=== PATIENT | female | born 1970 | race Two or more races ===

== ENCOUNTER → 2022-02-08 13:00 | Outpatient (BNVA) | payer OTHER, SELFPAY | PROVIDERS: Visit Provider Physician Assistant Surgical | DX: E66.01 Morbid (severe) obesity due to excess calories (principal); Z71.3 Dietary counseling and surveillance; Z68.42 Body mass index [BMI] 45.0-49.9, adult | CPT/HCPCS: 99202 ==

== ENCOUNTER 2022-02-12 09:05 | Outpatient (REF) | payer OTHER, SELFPAY ==
[2022-02-12 09:41] LABS: MANUAL DIFF FLAG NO
[2022-02-12 09:53] LABS: Basophils Percent Auto 0.3 % (0-2); Eosinophils Absolute Auto 0.4 X10*3/uL (0.0-0.4); Eosinophils Percent Auto 3.2 % (0-4); Hematocrit 37.2 % (37.0-47.0); Hemoglobin 11.6 g/dl (12.0-16.0); Imm Gran Abs Auto 0.09 X10*3/uL (0.00-0.03); Imm Gran Pct Auto 0.8 % (0.0-0.4); Lymphocytes Absolute Auto 2.6 X10*3/uL (1.2-4.9); Lymphocytes Percent Auto 22.6 % (20-40); Mean Corpuscular HGB Conc 31.2 g/dl (31.0-35.0); Mean Corpuscular Hemoglobin 23.9 pg (27.0-33.0); Mean Corpuscular Volume 76.7 fL (80.0-98.0); Monocytes Absolute Auto 0.6 X10*3/uL (0.1-1.2); Monocytes Percent Auto 4.8 % (2-11); Neutrophils Percent Auto 68.3 % (45-73); Platelet Count 385 X10*3/uL (160-400); Red Blood Count 4.85 X10*6/uL (4.20-5.50); Red Cell Distribution Width 15.7 % (11.0-16.0); White Blood Count 11.7 X10*3/uL (4.8-10.8)
[2022-02-12 10:05] LABS: Estimated Average Glucose 120 mg/dL; Hemoglobin A1c % 5.8 %
[2022-02-12 10:21] LABS: Alanine Aminotransferase 12 U/L (0-31); Alkaline Phosphatase 81 U/L (39-117); Anion Gap 11 (12-20); Aspartate Amino Transferase 10 U/L (5-31); Bilirubin Total 0.2 mg/dL (0.0-1.0); Blood Urea Nitrogen 14 mg/dL (9-16); Calcium 9.9 mg/dL (8.4-10.2); Carbon Dioxide 28 mmol/L (22-29); Chloride 106 mmol/L (96-108); Cholesterol 183 mg/dL; Estimated Glomerular Filt Rate > 60; Glucose Random 113 mg/dL (60-115); HDL Cholesterol 48 mg/dL; Iron 39 mcg/dL (30-160); LDL Cholesterol Calculated 123 mg/dl; Percent Iron Saturation 13 % (15-50); Potassium 4.3 mmol/L (3.3-5.1); Sodium 141 mmol/L (135-145); Total Iron Binding Capacity 304 mcg/dL (228-428); Total Protein 6.9 g/dL (6.5-8.0); Triglycerides 61 mg/dL; Unsaturated Iron Binding 265 ug/dL
[2022-02-12 10:54] LABS: Folate 13.5 ng/mL (> or = 4.0); Vitamin B12 452 pg/mL (200-900)
[2022-02-12 10:56] LABS: Ferritin 85 ng/mL (10-250); TSH reflex Free T4 1.18 uIU/mL (0.32-4.0); Vitamin D 25-OH Total 17.7 ng/mL (>30)
[2022-02-12 11:37] LABS: Insulin 20 uU/mL (2-29)
[2022-02-14 17:06] LABS: Calcium (PTHI) 10.3 mg/dL (8.6-10.4); PTHI 134 pg/mL (16-77)
[2022-02-15 02:02] LABS: Zinc 76 mcg/dL (60-130)
[2022-02-16 23:32] LABS: Vitamin A 38 mcg/dL (38-98)
[2022-02-23 06:17] LABS: Vitamin B1 12 nmol/L (8-30)
== END 2022-02-12 09:06 | disposition home or self-care (01) ==
LOC: HO.LAB 09:05
PROVIDERS: Visit Provider Physician Assistant Surgical
DX: E66.01 Morbid (severe) obesity due to excess calories (principal)
CPT/HCPCS: 36415; 80053; 80061; 82306; 82607; 82728; 82746; 83036; 83525; 83540; 83970; 84425; 84443; 84590; 84630; 85025; 86140

== ENCOUNTER → 2022-03-14 13:24 | Outpatient (BNVA) | payer OTHER, SELFPAY | PROVIDERS: Referring Provider Physician Assistant Surgical; Visit Provider Dietitian, Registered | DX: E66.01 Morbid (severe) obesity due to excess calories (principal) | CPT/HCPCS: 97802 ==

== ENCOUNTER 2022-03-15 10:41 | Outpatient (REF) | payer OTHER, SELFPAY ==
--- NOTE | ~2022-03-15 | XR_ITS ---
EXAMINATION: XR chest 2V CLINICAL INFORMATION: Reason for Exam E66.01 - Morbid (severe) obesity due to excess calories COMPARISON: None TECHNIQUE: 2 views of the chest FINDINGS: Clear lungs. No pneumothorax or pleural effusion. Normal cardiomediastinal silhouette. XR/XR chest 2V Impression: * Clear lungs.
--- NOTE | 2022-03-15 10:46 | ECG_ITS ---
Test Reason : MORBID OBESITY Blood Pressure : / mmHG Vent. Rate : 081 BPM Atrial Rate : 081 BPM P-R Int : 162 ms QRS Dur : 080 ms QT Int : 368 ms P-R-T Axes : 053 015 013 degrees QTc Int : 427 ms Normal sinus rhythm Normal ECG No previous ECGs available Referred By: Tejas Hudson Electronically Signed By:DK GRACIA
== END 2022-03-15 10:42 | disposition home or self-care (01) ==
LOC: HO.XRAY 10:41
PROVIDERS: Visit Provider Physician Assistant Surgical
DX: E66.01 Morbid (severe) obesity due to excess calories (principal)
CPT/HCPCS: 71046; 93005

== ENCOUNTER → 2022-04-01 13:47 | Outpatient (BNVA) | payer OTHER, SELFPAY | PROVIDERS: Visit Provider Physician Assistant Surgical | DX: E66.01 Morbid (severe) obesity due to excess calories (principal); Z68.42 Body mass index [BMI] 45.0-49.9, adult | CPT/HCPCS: 99212 ==

== ENCOUNTER 2022-04-04 08:14 | Outpatient (REF) | payer OTHER, SELFPAY ==
[2022-04-07 13:03] LABS: H Pylori Breath Test Negative (Negative)
== END 2022-04-04 08:15 | disposition home or self-care (01) ==
LOC: HO.XRAY 08:14
PROVIDERS: Visit Provider Physician Assistant Surgical
DX: E66.01 Morbid (severe) obesity due to excess calories (principal)
CPT/HCPCS: 36415; 83013; 99211

== ENCOUNTER → 2022-04-22 12:58 | Outpatient (BNVA) | payer OTHER, SELFPAY | PROVIDERS: Visit Provider Physician Assistant Surgical | DX: E66.01 Morbid (severe) obesity due to excess calories (principal); Z68.42 Body mass index [BMI] 45.0-49.9, adult | CPT/HCPCS: 99212 ==

== ENCOUNTER 2022-05-05 08:22 | Outpatient (REF) | payer OTHER, SELFPAY ==
--- NOTE | ~2022-05-05 | US_ITS ---
EXAMINATION: US COMPLETE ABDOMEN WITH LIVER ELASTOGRAPHY CLINICAL INFORMATION: Morbid to severe obesity due to excess calories. COMPARISON: None. TECHNIQUE: Real-time imaging of the abdominal viscera. Noninvasive ultrasound liver fibrosis assessment is performed using Paulina ElastPQ point quantification shear wave elastography (2D-SWE) with a C5-2 MHz transducer. Multiple elastography samples are obtained. FINDINGS: PANCREAS: Normal. The visualized pancreatic head and body are normal in appearance. The remainder of the pancreas is obscured from visualization by the overlying bowel gas. ABDOMINAL AORTA: The proximal and mid abdominal aorta is normal caliber. The distal abdominal aorta is obscured by overlying gas. INFERIOR VENA CAVA: Visualized portions are normal. LIVER: The liver demonstrates normal size, contour and increased echogenicity. No focal lesion or intrahepatic biliary duct dilatation. The right lobe measures 18.7 cm in length. The left lobe measures 13.7 cm in length. Portal flow is hepatopedal. Shear wave liver elastography median stiffness is 1.65 m/s (reference: normal median stiffness is 1.3 m/s or less). IQR/median stiffness to assess sampling precision is 0.05 (reference: good quality data set is IQR/median stiffness of 0.15 or less). GALLBLADDER: Normal. The gallbladder is physiologically distended without evidence of stones, sludge, polyps, wall thickening or pericholecystic fluid. COMMON BILE DUCT: Normal in caliber measuring 0.7 cm in diameter. RIGHT KIDNEY: Normal. No hydronephrosis. No renal calculi or focal parenchymal lesions. The kidney measures 13.9 cm in maximum dimension. LEFT KIDNEY: Normal. No hydronephrosis. No renal calculi or focal parenchymal lesions. The kidney measures 11.9 cm in maximum dimension. SPLEEN: Normal. The spleen measures 7.4 cm in maximum dimension. FREE FLUID: None. US/US abdomen comp w elastography IMPRESSION: 1. Hepatic steatosis without focal lesion. The rest of the abdominal ultrasound is unremarkable. 2. Liver elastography: Median liver stiffness 1.65 m/s. This corresponds to cACLD (ruled out). REFERENCE: Society of Radiologists in Ultrasound Liver Stiffness Thresholds (2019): LIVER STIFFNESS THRESHOLDS: *Liver Stiffness equal or less than 1.3 m/s: High probability of being normal. *Liver Stiffness less than 1.7 m/s: In the absence of other known clinical signs, rules out compensated advanced chronic liver disease. *Liver Stiffness 1.7-2.1 m/s: Suggestive of compensated advanced chronic liver disease but need further test for confirmation. *Liver Stiffness over 2.1 m/s: Rules in compensated advanced chronic liver disease. *Liver Stiffness over 2.4 m/s: Suggestive of clinically significant portal hypertension. QUALITY OF DATA SET: *IQR/Median value equal or less than 0.15 implies a quality data set *IQR/Median value over 0.15 implies a poor quality data set. SIGNIFICANT CHANGE FROM PRIOR EXAM: Significant change if liver stiffness measurement is 10% or greater from prior exam. OTHER CONSIDERATIONS: The stage of liver fibrosis may be overestimated in the setting of acute hepatitis, liver inflammation, elevated liver function tests, hepatic vascular congestion, obstructive cholestasis, non-fasting state, and infiltrative diseases such as amyloidosis and lymphoma. In some patients with NAFLD, the liver stiffness thresholds for compensated advanced chronic liver disease may be lower. In causes other than viral hepatitis and NAFLD, liver stiffness thresholds are not well established.
--- NOTE | ~2022-05-05 | FL_ITS ---
EXAMINATION: FLUOROSCOPY UPPER GI WITH AIR CLINICAL INFORMATION: Preop surgical weight loss COMPARISON: None. TECHNIQUE: An upper GI examination is performed under fluoroscopic observation with digital image acquisition. The patient drank effervescent granules, thick and thin barium consistencies without difficulty. FINDINGS: The esophagus is normal in motility and morphology. Normal caliber. No hiatal hernia. Mild spontaneous gastroesophageal reflux. The stomach demonstrates normal motility with normal rugal folds. The duodenal bulb and proximal duodenum demonstrate no evidence of ulcer, mass lesion, or displacement. FLUOROSCOPY TIME: 1 minute. 12 images. Fluoroscopy dose: 22.099 Gycm2 FL/FL upper GI w air IMPRESSION: Mild spontaneous gastroesophageal reflux. Otherwise normal UGI. Normal esophageal and gastric motility. No hiatal hernia.
== END 2022-05-05 08:23 | disposition home or self-care (01) ==
LOC: HO.US 08:22
PROVIDERS: Visit Provider Physician Assistant Surgical
DX: E66.01 Morbid (severe) obesity due to excess calories (principal)
CPT/HCPCS: 74246; 76705; 76981

== ENCOUNTER → 2022-05-11 13:45 | Outpatient (BNVA) | payer OTHER, SELFPAY | PROVIDERS: Visit Provider Physician Assistant Surgical | DX: E66.01 Morbid (severe) obesity due to excess calories (principal); Z68.42 Body mass index [BMI] 45.0-49.9, adult | CPT/HCPCS: 99212 ==

== ENCOUNTER → 2024-02-05 12:43 | Outpatient (BNVA) | payer OTHER, SELFPAY | PROVIDERS: Visit Provider Physician Assistant Surgical ==

== ENCOUNTER 2024-03-11 07:59 | Outpatient (AMB) | payer OTHER, SELFPAY ==
--- NOTE | 2024-03-11 10:27 | MHC.OFFVISWM ---
Intake Visit Reasons: TV Re-Est SWL BMI 41.9 *EGG BREAKER* Allergies ASPIRN Allergy (Severe, Uncoded 03/11/24 10:30) Anaphylaxis CT CONTRAST Allergy (Mild, Uncoded 03/11/24 10:30) UNKOWN Medication List - Last Reconciled 03/11/24 by Danny Benedict MD albuterol sulfate 90 mcg/actuation (ProAir HFA) 2 puffs inhalation Q4H PRN buspirone 5 mg PO BID cholecalciferol (vitamin D3) 125 mcg PO DAILY fluticasone propion-salmeterol 500-50 mcg/dose (Advair Diskus) 1 ea inhalation BID fluticasone propionate 50 mcg/actuation 1 spray intranasal BID gabapentin 600 mg PO TID lisinopril 10 mg PO DAILY loratadine 10 mg PO DAILY PRN metformin 500 mg PO BID montelukast 10 mg PO QPM omeprazole 20 mg PO DAILY sertraline 25 mg PO QAM tizanidine 8 mg PO Q8H PRN topiramate 0 mg PO HPI HPI TV Re-Est SWL BMI 41.9 *EGG BREAKER*: Details: Start time: 10.30am, End time: 11.15am ?I spent 40 minutes speaking with the patient on the phone plus an additional 5 minutes reviewing and updating records for a total of 45 minutes HPI Comments Details: Previous weight loss efforts: [facility] [place] ([place] 6lbs) Wakes up: 8am, Sleeps: 11pm Breakfast: 8.30am (eggs, sandwich) Lunch: 1pm (rice, beans and chicken Dinner: 7pm (same, or sandwich) Snacks: 10am (crackers), 5pm (corn flakes or crackers), 8pm (corn flakes) Exercise: Has a stationary bike (calorie tracker is not working) Fluids: Coffee with sugar x2-3 ,Tea: rarely, soda: less now, Juice: occasionally, ETOH: PFSH Medical History (Updated 03/11/24 @ 10:35 by Danny Benedict MD) GERD (gastroesophageal reflux disease) Migraines Anxiety Depression Hypertension Non-insulin dependent type 2 diabetes mellitus Surgical History Hx of colonoscopy Hx of bladder endoscopy Hx of tubal ligation Hx of oral surgery Hx of cholecystectomy Hx of emergency section Hx of appendectomy Family History Mother Stomach problems Father No problems noted. Daughter No problems noted. Social History Alcohol intake: never Patient Tobacco Use Status: Never used Tobacco Telehealth Telehealth Telehealth Platform: Telephone Location of provider rendering services: practice address Location of patient: address on file Patient Identification confirmed using: Name, : Yes Telehealth method: voice only Patient verbally consented to treatment: Yes Patient verbally consented to billing insurance company: Yes Patient informed of any privacy concerns related to visit: Yes Minutes spent on Phone/Video with Pt.: 45 Assessment & Plan Assessment & Plan (1) Morbid obesity: Code(s): E66.01 - Morbid (severe) obesity due to excess calories Category: Medical Plan: 1.? Plan for lap sleeve gastrectomy. If diaphragmatic or ventral hernias are present at time of surgery, these will be repaired laparoscopically as well. Risks and complications were discussed in detail including possible conversion to an open procedure, anastomotic leak, bleeding requiring transfusion, small bowel obstruction, , DVT and pulmonary embolism, cardiac, or pulmonary complications, as residential complications such as anastomotic ulcer, insufficient weight loss and vitamin deficiencies. I emphasized the importance of close follow-up, adherence to instructions and good communication. 2. Nutritional counseling. Start with 2 CELEBRATE REBUILD protein (buy at [facility]) shakes (TWO scoops EACH in 8oz low fat unsweetened almond milk each) at 9am-11am and 12pm-2pm, 1 protein bar (CELEBRATE protein bars, buy at [facility]) at 3pm-5pm, dinner at 6pm (10 forks of protein and 10 forks of salad/vegetables) AND one more protein bar after dinner at 8pm-10pm. So you do 2 protein shakes, 2 protein bars and one meal per day. Meal to include lean meat (beef, fish, pork, turkey, chicken), or telugu yogurt, or egg whites, or beans with a salad with olive oil and fruits (berries, pears, apples, kiwi). Avoid salt, breads, potatoes, rice, pasta, desserts. 3. Each shake would be drunk slowly, like coffee in a period of 2 hours. 4. Cut each bar in 4 pieces and eat each piece in 30min ?to make each bar last 2 hours. 5. I emphasized the importance of measuring accurately the food portion and measure it when serving the food in plate 6. The meal portions include 10 full-size forks of meat and 10 full-size forks of salad. You always eat the meat portion but you can replace up to 5 forks for salad/vegetables with rice, potatoes or pasta, or a fruit ?if you like. The less you do it the better weight loss will be. 7. One full-size fork is what it can be scooped on the fork without falling aside and not what can be bit with the fork. Use regular forks like those you find in a typical restaurant. 8.? Please send me weight measurements as soon as possible and then once a week. Always include your diet and exercise plan. 9. Start stationary bike at a resistance level of 4.0 and continue until 300 calories are burned. Goal is to burn 2000 calories per week on exercise 10. The best choice would be to purchase a stationary bike, elliptical or treadmill at home that can track calories. 11. Goal is to lose at least 1.5-2lbs per week 12. Goal to lose 10% of your weight before surgery, which is about 27lbs. Ultimate weight goal: 250lbs before surgery 13. Please follow the diet plan exactly without any change. If you don't like something about the plan or you feel hungry you need to communicate with me so I can help you revise the plan. You should not change the plan yourself. 14. To be scheduled for EGD due to history of GERD. The possibility of biopsies was discussed. Patient needs to avoid use of NSAIDs and aspirin for 1 week prior to EGD. Risks of perforation and bleeding was discussed with the patient. This will be an outpatient procedure with IV sedation. Orders: Orders Complete Blood Count Auto Diff Today E11.9 - Type 2 diabetes mellitus without complications, E66.01 - Morbid (severe) obesity due to excess calories, G47.33 - Obstructive sleep apnea (adult) (pediatric), I10 - Essential (primary) hypertension, J45.909 - Unspecified asthma, uncomplicated, K21.9 - Gastro-esophageal reflux disease without esophagitis, Z99.89 - Dependence on other enabling machines and devices IRON PROFILE Today E11.9 - Type 2 diabetes mellitus without complications, E66.01 - Morbid (severe) obesity due to excess calories, G47.33 - Obstructive sleep apnea (adult) (pediatric), I10 - Essential (primary) hypertension, J45.909 - Unspecified asthma, uncomplicated, K21.9 - Gastro-esophageal reflux disease without esophagitis, Z99.89 - Dependence on other enabling machines and devices Zinc Today E11.9 - Type 2 diabetes mellitus without complications, E66.01 - Morbid (severe) obesity due to excess calories, G47.33 - Obstructive sleep apnea (adult) (pediatric), I10 - Essential (primary) hypertension, J45.909 - Unspecified asthma, uncomplicated, K21.9 - Gastro-esophageal reflux disease without esophagitis, Z99.89 - Dependence on other enabling machines and devices US abdomen comp w elastography Today E11.9 - Type 2 diabetes mellitus without complications, E66.01 - Morbid (severe) obesity due to excess calories, G47.33 - Obstructive sleep apnea (adult) (pediatric), I10 - Essential (primary) hypertension, J45.909 - Unspecified asthma, uncomplicated, K21.9 - Gastro-esophageal reflux disease without esophagitis, Z99.89 - Dependence on other enabling machines and devices FL upper GI w air Today E11.9 - Type 2 diabetes mellitus without complications, E66.01 - Morbid (severe) obesity due to excess calories, G47.33 - Obstructive sleep apnea (adult) (pediatric), I10 - Essential (primary) hypertension, J45.909 - Unspecified asthma, uncomplicated, K21.9 - Gastro-esophageal reflux disease without esophagitis, Z99.89 - Dependence on other enabling machines and devices Insulin Today E11.9 - Type 2 diabetes mellitus without complications, E66.01 - Morbid (severe) obesity due to excess calories, G47.33 - Obstructive sleep apnea (adult) (pediatric), I10 - Essential (primary) hypertension, J45.909 - Unspecified asthma, uncomplicated, K21.9 - Gastro-esophageal reflux disease without esophagitis, Z99.89 - Dependence on other enabling machines and devices Hemoglobin A1c Today E11.9 - Type 2 diabetes mellitus without complications, E66.01 - Morbid (severe) obesity due to excess calories, G47.33 - Obstructive sleep apnea (adult) (pediatric), I10 - Essential (primary) hypertension, J45.909 - Unspecified asthma, uncomplicated, K21.9 - Gastro-esophageal reflux disease without esophagitis, Z99.89 - Dependence on other enabling machines and devices H Pylori Breath Test Today E11.9 - Type 2 diabetes mellitus without complications, E66.01 - Morbid (severe) obesity due to excess calories, G47.33 - Obstructive sleep apnea (adult) (pediatric), I10 - Essential (primary) hypertension, J45.909 - Unspecified asthma, uncomplicated, K21.9 - Gastro-esophageal reflux disease without esophagitis, Z99.89 - Dependence on other enabling machines and devices Lipid Panel Today E11.9 - Type 2 diabetes mellitus without complications, E66.01 - Morbid (severe) obesity due to excess calories, G47.33 - Obstructive sleep apnea (adult) (pediatric), I10 - Essential (primary) hypertension, J45.909 - Unspecified asthma, uncomplicated, K21.9 - Gastro-esophageal reflux disease without esophagitis, Z99.89 - Dependence on other enabling machines and devices Comprehensive Met. Panel Today E11.9 - Type 2 diabetes mellitus without complications, E66.01 - Morbid (severe) obesity due to excess calories, G47.33 - Obstructive sleep apnea (adult) (pediatric), I10 - Essential (primary) hypertension, J45.909 - Unspecified asthma, uncomplicated, K21.9 - Gastro-esophageal reflux disease without esophagitis, Z99.89 - Dependence on other enabling machines and devices Vitamin B12 and Folate Today E11.9 - Type 2 diabetes mellitus without complications, E66.01 - Morbid (severe) obesity due to excess calories, G47.33 - Obstructive sleep apnea (adult) (pediatric), I10 - Essential (primary) hypertension, J45.909 - Unspecified asthma, uncomplicated, K21.9 - Gastro-esophageal reflux disease without esophagitis, Z99.89 - Dependence on other enabling machines and devices C Reactive Protein Today E11.9 - Type 2 diabetes mellitus without complications, E66.01 - Morbid (severe) obesity due to excess calories, G47.33 - Obstructive sleep apnea (adult) (pediatric), I10 - Essential (primary) hypertension, J45.909 - Unspecified asthma, uncomplicated, K21.9 - Gastro-esophageal reflux disease without esophagitis, Z99.89 - Dependence on other enabling machines and devices Vitamin B1 Today E11.9 - Type 2 diabetes mellitus without complications, E66.01 - Morbid (severe) obesity due to excess calories, G47.33 - Obstructive sleep apnea (adult) (pediatric), I10 - Essential (primary) hypertension, J45.909 - Unspecified asthma, uncomplicated, K21.9 - Gastro-esophageal reflux disease without esophagitis, Z99.89 - Dependence on other enabling machines and devices Vitamin A Today E11.9 - Type 2 diabetes mellitus without complications, E66.01 - Morbid (severe) obesity due to excess calories, G47.33 - Obstructive sleep apnea (adult) (pediatric), I10 - Essential (primary) hypertension, J45.909 - Unspecified asthma, uncomplicated, K21.9 - Gastro-esophageal reflux disease without esophagitis, Z99.89 - Dependence on other enabling machines and devices TSH reflex Free T4 Today E11.9 - Type 2 diabetes mellitus without complications, E66.01 - Morbid (severe) obesity due to excess calories, G47.33 - Obstructive sleep apnea (adult) (pediatric), I10 - Essential (primary) hypertension, J45.909 - Unspecified asthma, uncomplicated, K21.9 - Gastro-esophageal reflux disease without esophagitis, Z99.89 - Dependence on other enabling machines and devices Ferritin Today E11.9 - Type 2 diabetes mellitus without complications, E66.01 - Morbid (severe) obesity due to excess calories, G47.33 - Obstructive sleep apnea (adult) (pediatric), I10 - Essential (primary) hypertension, J45.909 - Unspecified asthma, uncomplicated, K21.9 - Gastro-esophageal reflux disease without esophagitis, Z99.89 - Dependence on other enabling machines and devices Vitamin D 25-OH Total Today E11.9 - Type 2 diabetes mellitus without complications, E66.01 - Morbid (severe) obesity due to excess calories, G47.33 - Obstructive sleep apnea (adult) (pediatric), I10 - Essential (primary) hypertension, J45.909 - Unspecified asthma, uncomplicated, K21.9 - Gastro-esophageal reflux disease without esophagitis, Z99.89 - Dependence on other enabling machines and devices XR chest 2V Today E11.9 - Type 2 diabetes mellitus without complications, E66.01 - Morbid (severe) obesity due to excess calories, G47.33 - Obstructive sleep apnea (adult) (pediatric), I10 - Essential (primary) hypertension, J45.909 - Unspecified asthma, uncomplicated, K21.9 - Gastro-esophageal reflux disease without esophagitis, Z99.89 - Dependence on other enabling machines and devices ECG 12 lead EKG Today E11.9 - Type 2 diabetes mellitus without complications, E66.01 - Morbid (severe) obesity due to excess calories, G47.33 - Obstructive sleep apnea (adult) (pediatric), I10 - Essential (primary) hypertension, J45.909 - Unspecified asthma, uncomplicated, K21.9 - Gastro-esophageal reflux disease without esophagitis, Z99.89 - Dependence on other enabling machines and devices Referrals Behavioral Health Referral E11.9 - Type 2 diabetes mellitus without complications, E66.01 - Morbid (severe) obesity due to excess calories, G47.33 - Obstructive sleep apnea (adult) (pediatric), I10 - Essential (primary) hypertension, J45.909 - Unspecified asthma, uncomplicated, K21.9 - Gastro-esophageal reflux disease without esophagitis, Z99.89 - Dependence on other enabling machines and devices Nutrition/Dietitian Referral E11.9 - Type 2 diabetes mellitus without complications, E66.01 - Morbid (severe) obesity due to excess calories, G47.33 - Obstructive sleep apnea (adult) (pediatric), I10 - Essential (primary) hypertension, J45.909 - Unspecified asthma, uncomplicated, K21.9 - Gastro-esophageal reflux disease without esophagitis, Z99.89 - Dependence on other enabling machines and devices
== END 2024-03-11 11:17 | disposition home or self-care (01) ==
LOC: HO.HBS 07:59
PROVIDERS: Visit Provider Surgery
DX: E66.01 Morbid (severe) obesity due to excess calories (principal)
CPT/HCPCS: 99204

== ENCOUNTER → 2024-03-11 07:59 | Outpatient (BNVA) | payer OTHER, SELFPAY | PROVIDERS: Visit Provider Surgery ==

== ENCOUNTER 2024-03-12 08:40 | Outpatient (REF) | payer OTHER, SELFPAY ==
--- NOTE | ~2024-03-12 | XR_ITS ---
EXAMINATION: XR CHEST CLINICAL INFORMATION: Morbid severe obesity due to excess calories COMPARISON: 03/15/2022 TECHNIQUE: 2 views of the chest were obtained. FINDINGS: Lung volumes are low. There is no gross pneumothorax. Surgical clip at the thoracic inlet. Dextroscoliosis of the thoracic spine with multilevel degenerative changes. Cardiac silhouette upper limits of normal in size. No pleural effusion. No focal consolidation. Surgical clips in the upper abdomen. XR/XR chest 2V IMPRESSION: No evidence of pneumonia. Electronically signed by: Sandra Diggs MD 03/27/2024 11:16 AM EDT
--- NOTE | 2024-03-12 08:54 | ECG_ITS ---
Test Reason : MORBID OBESITY Blood Pressure : / mmHG Vent. Rate : 075 BPM Atrial Rate : 075 BPM P-R Int : 164 ms QRS Dur : 092 ms QT Int : 392 ms P-R-T Axes : 055 019 019 degrees QTc Int : 437 ms Normal sinus rhythm Normal ECG When compared with ECG of 15-MAR-2022 10:43, No significant change was found Referred By: Danny Benedict Electronically Signed By:DK GRACIA
[2024-03-12 09:06] LABS: MANUAL DIFF FLAG NO
[2024-03-12 09:27] LABS: Basophils Absolute Auto 0.1 X10*3/uL (0.0-0.2); Basophils Percent Auto 0.5 % (0-2); Eosinophils Absolute Auto 0.3 X10*3/uL (0.0-0.4); Eosinophils Percent Auto 2.5 % (0-4); Hematocrit 40.7 % (37.0-47.0); Hemoglobin 12.3 g/dl (12.0-16.0); Imm Gran Abs Auto 0.06 X10*3/uL (0.00-0.03); Imm Gran Pct Auto 0.5 % (0.0-0.4); Lymphocytes Absolute Auto 2.6 X10*3/uL (1.2-4.9); Mean Corpuscular HGB Conc 30.2 g/dl (31.0-35.0); Mean Corpuscular Hemoglobin 23.6 pg (27.0-33.0); Mean Corpuscular Volume 78.1 fL (80.0-98.0); Monocytes Absolute Auto 0.5 X10*3/uL (0.1-1.2); Monocytes Percent Auto 4.4 % (2-11); Neutrophils Absolute Auto 8.2 x10*3/uL (2.0-8.3); Neutrophils Percent Auto 70.1 % (45-73); Platelet Count 373 X10*3/uL (160-400); Red Blood Count 5.21 X10*6/uL (4.20-5.50); Red Cell Distribution Width 15.7 % (11.0-16.0); White Blood Count 11.6 X10*3/uL (4.8-10.8)
[2024-03-12 09:43] LABS: Estimated Average Glucose 123 mg/dL; Hemoglobin A1c % 5.9 % (<6.0)
[2024-03-12 10:35] LABS: Alanine Aminotransferase 14 U/L (0-31); Albumin Level 4.1 g/dL (3.5-5.0); Alkaline Phosphatase 68 U/L (39-117); Anion Gap 14 (12-20); Aspartate Amino Transferase 11 U/L (5-31); Bilirubin Total 0.3 mg/dL (0.0-1.0); Blood Urea Nitrogen 15 mg/dL (9-16); C Reactive Protein 2.28 mg/dL (< or = 0.50); Calcium 9.9 mg/dL (8.4-10.2); Carbon Dioxide 26 mmol/L (22-29); Chloride 106 mmol/L (96-108); Cholesterol 170 mg/dL (<200); Estimated Glomerular Filt Rate > 60; Glucose Random 120 mg/dL (60-115); HDL Cholesterol 43 mg/dL (>40); Iron 47 mcg/dL (30-160); LDL Cholesterol Calculated 111 mg/dL (<100); Percent Iron Saturation 19 % (15-50); Potassium 4.6 mmol/L (3.3-5.1); Sodium 141 mmol/L (135-145); Total Iron Binding Capacity 253 mcg/dL (228-428); Total Protein 7.6 g/dL (6.5-8.0); Triglycerides 84 mg/dL (<150); Unsaturated Iron Binding 206 ug/dL
[2024-03-12 10:44] LABS: Ferritin 115 ng/mL (10-250); Insulin 13 uU/mL (2-29); TSH reflex Free T4 1.08 uIU/mL (0.32-4.0); Vitamin D 25-OH Total 33.9 ng/mL (>30)
[2024-03-12 11:01] LABS: Folate 13.3 ng/mL (> or = 4.0); Vitamin B12 501 pg/mL (200-900)
[2024-03-15 00:19] LABS: Vitamin A 43 mcg/dL (38-98)
[2024-03-15 02:49] LABS: Zinc 75 mcg/dL (60-130)
[2024-03-16 12:09] LABS: Vitamin B1 11 nmol/L (8-30)
== END 2024-03-12 08:41 | disposition home or self-care (01) ==
LOC: HO.XRAY 08:40
PROVIDERS: Visit Provider Surgery
DX: E66.01 Morbid (severe) obesity due to excess calories (principal); J45.909 Unspecified asthma, uncomplicated; G47.33 Obstructive sleep apnea (adult) (pediatric); Z99.89 Dependence on other enabling machines and devices; E11.9 Type 2 diabetes mellitus without complications; I10 Essential (primary) hypertension; K21.9 Gastro-esophageal reflux disease without esophagitis
CPT/HCPCS: 36415; 71046; 80053; 80061; 82306; 82607; 82728; 82746; 83036; 83525; 83540; 84425; 84443; 84590; 84630; 85025; 86140; 93005

== ENCOUNTER 2024-03-18 09:21 | Outpatient (REF) | payer OTHER, SELFPAY ==
--- NOTE | ~2024-03-18 | US_ITS ---
EXAMINATION: US COMPLETE ABDOMEN WITH LIVER ELASTOGRAPHY CLINICAL INFORMATION: Morbid obesity. COMPARISON: Ultrasound abdomen with Elastoplasty 05/05/2022. TECHNIQUE: Real-time imaging of the abdominal viscera. Noninvasive ultrasound liver fibrosis assessment is performed using Paulina ElastPQ point quantification shear wave elastography (pSWE) with a C5-2 MHz transducer. Multiple elastography samples are obtained. FINDINGS: PANCREAS: The visualized pancreatic head and body are normal in appearance. The remainder of the pancreas is obscured from visualization by the overlying bowel gas. ABDOMINAL AORTA: The proximal, middle, and distal aortic segments are normal in caliber. INFERIOR VENA CAVA: Visualized portions are normal. LIVER: Liver is enlarged with increased echogenicity consistent with hepatic steatosis.. No focal lesion or intrahepatic biliary duct dilatation. The right lobe measures 18.0 cm in length. The left lobe measures 12.3 cm in length. Portal flow is towards the liver (hepatopetal). Shear wave liver elastography median stiffness is 1.51 m/s (reference: normal median stiffness is 1.3 m/s or less). IQR/median stiffness to assess sampling precision is 0.14 (reference: good quality data set is IQR/median stiffness of 0.15 or less). GALLBLADDER: Normal. The gallbladder is physiologically distended without evidence of stones, sludge, polyps, wall thickening or pericholecystic fluid. COMMON BILE DUCT: Normal in caliber measuring 0.7 cm in diameter. RIGHT KIDNEY: Normal. No hydronephrosis. No renal calculi or focal parenchymal lesions. A column of Trell is present. The kidney measures 13.9 cm in maximum dimension. LEFT KIDNEY: Normal. No hydronephrosis. No renal calculi or focal parenchymal lesions. The kidney measures 13.2 cm in maximum dimension. SPLEEN: Normal. The spleen measures 7.7 cm in maximum dimension. FREE FLUID: None. US/US abdomen comp w elastography IMPRESSION: 1. Enlarged fatty liver. 2. Liver elastography: In the absence of other known clinical signs, measurements rule out compensated advanced chronic liver disease. If there are known clinical signs, further testing may be needed for confirmation. REFERENCE: Society of Radiologists in Ultrasound Liver Stiffness Thresholds (2020): LIVER STIFFNESS THRESHOLDS: *Liver Stiffness equal or less than 1.3 m/s: High probability of being normal. *Liver Stiffness less than 1.7 m/s: In the absence of other known clinical signs, rules out compensated advanced chronic liver disease. *Liver Stiffness 1.7-2.1 m/s: Suggestive of compensated advanced chronic liver disease but need further test for confirmation. *Liver Stiffness over 2.1 m/s: Rules in compensated advanced chronic liver disease. *Liver Stiffness over 2.4 m/s: Suggestive of clinically significant portal hypertension. QUALITY OF DATA SET: *IQR/Median value equal or less than 0.15 implies a quality data set. *IQR/Median value over 0.15 implies a poor quality data set. SIGNIFICANT CHANGE FROM PRIOR EXAM: Significant change if liver stiffness measurement is 10% or greater from prior exam. OTHER CONSIDERATIONS: The stage of liver fibrosis may be overestimated in the setting of acute hepatitis, liver inflammation, elevated liver function tests, hepatic vascular congestion, obstructive cholestasis, non-fasting state, and infiltrative diseases such as amyloidosis and lymphoma. In some patients with NAFLD, the liver stiffness thresholds for compensated advanced chronic liver disease may be lower. In causes other than viral hepatitis and NAFLD, liver stiffness thresholds are not well established. Electronically signed by: Vitaly Méndez MD 03/20/2024 05:04 PM EDT
== END 2024-03-18 09:22 | disposition home or self-care (01) ==
LOC: HO.US 09:21
PROVIDERS: Visit Provider Surgery
DX: E66.01 Morbid (severe) obesity due to excess calories (principal); J45.909 Unspecified asthma, uncomplicated; G47.33 Obstructive sleep apnea (adult) (pediatric); Z99.89 Dependence on other enabling machines and devices; E11.9 Type 2 diabetes mellitus without complications; I10 Essential (primary) hypertension; K21.9 Gastro-esophageal reflux disease without esophagitis
CPT/HCPCS: 76700; 76981

== ENCOUNTER → 2024-03-19 10:22 | Outpatient (AMB) | payer OTHER, SELFPAY ==
--- NOTE | 2024-03-19 10:19 | A.OFFWM_ITS ---
Intake Intake Visit Reasons: TV BH Intake Allergies ASPIRN Allergy (Severe, Uncoded 03/11/24 10:30) Anaphylaxis CT CONTRAST Allergy (Mild, Uncoded 03/11/24 10:30) UNKOWN [facility] Medical History (Updated 03/11/24 @ 10:35 by Danny Benedict MD) GERD (gastroesophageal reflux disease) Migraines Anxiety Depression Hypertension Non-insulin dependent type 2 diabetes mellitus Surgical History Hx of colonoscopy Hx of bladder endoscopy Hx of tubal ligation Hx of oral surgery Hx of cholecystectomy Hx of emergency section Hx of appendectomy Family History Mother Stomach problems Father No problems noted. Daughter No problems noted. Social History Alcohol intake: never Patient Tobacco Use Status: Never used Tobacco Behavioral Health Assessment Weight Management Therapy Therapy Notes Details PT is a years old F/M, who presents for a visit to complete BH assessment as part of surgical weight loss program. PT i reestablishing care as she was at this program in 2021. PT reports she is looking for help with learning better eating habits and start living a healthy life. Bariatric surgery has been advised to her due to her BMI and multiple health issues. Presenting Concerns Referral Source P-Provider. PT had initial visit with Dr. Dorsey on 03/11/24 PT was in this program on 01/2022. Reason for referral Completion of behavioral health assessment as part of process for weight-loss surgery. Precipitating Event Obesity and medical issues. Living Situation Current Living Situation Rent At risk of losing current housing? No Satisfied with current living situation? Yes Comments PT lives alone. Food/Weight/Diet Expectations of change Initial Goal to lose 10% of your weight before surgery, which is about 27lbs. Ultimate weight goal: 250lbs before surgery. Patient wants to be healthier, and she understand that by losing weight her health will be better. She also wants to feel better with herself with her body. PT as not started meal plan yet. Current meal plan: 2 shakes, 2 bars and 1 meal. Exercise plan: She has a bike and has been advised to use it daily and burn 300 calories. She hasn't started. History/Relationship with food PT reports she tends to swallow food instead of properly chewing foods. She eat fast a mostly carbs. Meals are -style a with multiple carbs in one meal. And she gets very hungry at night often binging and snaking on sweets, cereal with milk or crackers. She doesn't have a meal schedule, and mostly her meals will depend on her mood or how she feels physically. Example of meals before starting the program: Breakfast: @8 or 9am. frozen waffles with coffee (cream and sugar), toast with peanut butter and jelly, crackers with eggs, deli sandwich. Lunch: Skip. Will mostly eat soda crackers with coffee. If cooking dinner early then she will eat at 2pm her meal of the day. Dinner: @4pm. style cooked meals (rice, beans, pork). If hungry at 7pm, will have either a second portion from meal she cooked or will prepare a sandwich or cereal with milk. Frozen pizza. Snacks: multiple at days. Doritos, lollipops, soda. Drinks/Liquids: coffee multiple cups at day, soda, crystal light, 2-3 bootless of water at day, sparkling water with flavor. History/Relationship with weight PT reports she has always been overweight. In the last 10 years, the patient's Lowest weight was around 220Lbs and highest 280Lbs. History/Relationship with dieting [facility] in 2021. She has done some diets and OTC pills. She usually starts every effort very motivated but she doesn't like to do things alone, and then feels unmotivated and gets back into old habits which leads to gain the weight she loss. Assessment & Plan Assessment & Plan (1) Anxiety: Code(s): F41.9 - Anxiety disorder, unspecified Plan PT not cleared today. She will be returning to continue assessment. On the other hand, the client needs support with habit building, mindset and alleged emotional eating. PT was provided with strategies to be consistent with her meal plan and ways to start exercise plan while does something she likes (watch a movie, listen to music) Next laurel: 04/03/2024 at 10am. Telehealth Telehealth Telehealth Platform: Thing[employer] Location of provider rendering services: other Location of patient: address on file Patient Identification confirmed using: Name, : Yes Telehealth method: video Patient verbally consented to treatment: Yes Patient verbally consented to billing insurance company: Yes Patient informed of any privacy concerns related to visit: No Minutes spent on Phone/Video with Pt.: 60 Coding Level of Care Code New Pt Tele Psy Diag Eval (41790) Patient Type New Diagnoses Anxiety F41.9 Time Spent (min) 60 Comment Start time: 10:00 - End time: 11:00
== END ==
PROVIDERS: Visit Provider Counselor Mental Health
DX: F41.9 Anxiety disorder, unspecified (principal)
CPT/HCPCS: 90791

== ENCOUNTER → 2024-03-19 10:22 | Outpatient (BNVA) | payer OTHER, SELFPAY | PROVIDERS: Visit Provider Counselor Mental Health ==

== ENCOUNTER → 2024-04-03 10:12 | Outpatient (BNVA) | payer OTHER, SELFPAY | PROVIDERS: Visit Provider Counselor Mental Health ==

== ENCOUNTER → 2024-04-03 10:12 | Outpatient (AMB) | payer OTHER, SELFPAY ==
--- NOTE | 2024-04-03 10:05 | A.OFFWM_ITS ---
Intake Intake Visit Reasons: VIDEO Intake Part 2 Allergies ASPIRN Allergy (Severe, Uncoded 03/11/24 10:30) Anaphylaxis CT CONTRAST Allergy (Mild, Uncoded 03/11/24 10:30) UNKOWN [facility] Medical History (Updated 03/11/24 @ 10:35 by Danny Benedict MD) GERD (gastroesophageal reflux disease) Migraines Anxiety Depression Hypertension Non-insulin dependent type 2 diabetes mellitus Surgical History Hx of colonoscopy Hx of bladder endoscopy Hx of tubal ligation Hx of oral surgery Hx of cholecystectomy Hx of emergency section Hx of appendectomy Family History Mother Stomach problems Father No problems noted. Daughter No problems noted. Social History Alcohol intake: never Patient Tobacco Use Status: Never used Tobacco Behavioral Health Assessment Weight Management Therapy Therapy Notes Details PT is a years old F/M, who presents for a second visit to continue BH assessment as part of surgical weight loss program. PT i reestablishing care as she was at this program in 2021. PT reports she is looking for help with learning better eating habits and start living a healthy life. Bariatric surgery has been advised to her due to her BMI and multiple health issues. Today we continue her assessment however, counseling was provided for symptom management and to provide client with techniques for motivation and healthier self-care practices. PT reports ongoing struggles being consistent with program requirements around meal/exercise, and we identified this is due to her mental health, she agreed about need for support with habit building and mindset. PT is attending counseling but not feeling current treatment is helping her resolving core components of depression and with no major behavioral changes on her part. PT also did not completed BH questionnaires at intake to re-start WMP program, so we will have to complete these at next visit. PT was very open, active and engaged. She disclosed personal information that helped and guided interventions used today. PT also responded well to modalities used by provider. At this time patient is not cleared, she will need support pre and post surgery. Presenting Concerns Referral Source [facility]-Provider. PT had initial visit with Dr. Dorsey on 03/11/24 PT was in this program on 01/2022. Reason for referral Completion of behavioral health assessment as part of process for weight-loss surgery. Precipitating Event Obesity and medical issues. Living Situation Current Living Situation Rent At risk of losing current housing? No Satisfied with current living situation? Yes Comments PT lives alone. Food/Weight/Diet Expectations of change Initial Goal to lose 10% of your weight before surgery, which is about 27lbs. Ultimate weight goal: 250lbs before surgery. Patient wants to be healthier, and she understand that by losing weight her health will be better. She also wants to feel better with herself with her body. PT as not started meal plan yet. Current meal plan: 2 shakes, 2 bars and 1 meal. Exercise plan: She has a bike and has been advised to use it daily and burn 300 calories. She hasn't started. History/Relationship with food PT reports she tends to swallow food instead of properly chewing foods. She eat fast a mostly carbs. Meals are -style a with multiple carbs in one meal. And she gets very hungry at night often binging and snaking on sweets, cereal with milk or crackers. She doesn't have a meal schedule, and mostly her meals will depend on her mood or how she feels physically. Example of meals before starting the program: Breakfast: @8 or 9am. frozen waffles with coffee (cream and sugar), toast with peanut butter and jelly, crackers with eggs, deli sandwich. Lunch: Skip. Will mostly eat soda crackers with coffee. If cooking dinner early then she will eat at 2pm her meal of the day. Dinner: @4pm. style cooked meals (rice, beans, pork). If hungry at 7pm, will have either a second portion from meal she cooked or will prepare a sandwich or cereal with milk. Frozen pizza. Snacks: multiple at days. Doritos, lollipops, soda. Drinks/Liquids: coffee multiple cups at day, soda, crystal light, 2-3 bootless of water at day, sparkling water with flavor. History/Relationship with weight PT reports she has always been overweight. In the last 10 years, the patient's Lowest weight was around 220Lbs and highest 280Lbs. History/Relationship with dieting [facility] in 2021. She has done some diets and OTC pills. She usually starts every effort very motivated but she doesn't like to do things alone, and then feels unmotivated and gets back into old habits which leads to gain the weight she loss. Social History Family history and relationship PT is several years ago. She dates someone 4 years ago who lives in [place]. She has 1 adult daughter and 3 grandkids (they are 15, 13 and 3). She has 2 siblings, mother alive, dad is . PT states she is close with her mother and daughter, and but good relationships with her family in general. Parental/Familial kitchen bath designer obligations Helps taking care of grandchildren. Developmental history and status She had a speech delay in childhood. 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 Currently WNL. Social support Brother, daughter, mother. Community support None. Baptism/Spirituality [employer]. Goes to catholic couple times at year. Cultural/Ethnic information Born and raised in [place]. [place] moved to the [place] 1999. Arabic speaker. Legal Involvement and History Current or historical involvement with the legal system? None reported Education0 Highest grade completed GED. Preferred learning style Learn by doing and Visual Currently enrolled in educational program? No Interested in further educational program? No Employment Employment Status Never Worked (Tried early in life but had issues due to anxiety being abound people and other physical limitations. ) and Unemployed Wants help to find employment? No Meaningful activities Family activities, care of grandkids, watch Tv. Financial Situation Describe current financial situation Often struggles with finance and Financial struggles are a major source of stress Financial assistance? Food [place], SSI and Disability Service Service? No Mental Health and Addiction Treatment Current/Past substance abuse? No Comments Alcohol: rarely, couple times at year 1 beer. Cigarettes/Tobacco: None. Was a smoker years ago. Cannabis/Edibles: None. Current/Past addictive behavior concerns? No Psychiatric history PT currently sees a therapist (Dilcia James) on a bi-weekly basis via telehealth and has a prescriber with whom she meets every 2-3 months. PT states she suffers from depression and anxiety but she's not aware of formal diagnosis. She has a history of self-harming (cutting her arms) when upset and dealing with intense anger. She has been stable in regards cutting couple years ago, and has been replacing this need by getting tattoos as when she goes trough pain she was able to regulate her emotions. States she has never been in crisis and/or hospitalized for mental health. Denies any SI/SA and other-harm. Symptom presentation: -When she's depressed she cries and isol ates, she feels she losses the meaning of her life. - She has high stress due to finances bu t at the same time she struggles with buying in excess. - Reports issues with body image and Medical and Physical Health Summary Additional Medical History not covered in history None Sexual History concerns None Physical exam in the last year? Yes Pain Screening Current pain? Yes Pain in the last few months? Yes Medications Is the patient compliant with medications? Yes Does the patient have Aragon Guardian in place? Not applicable Does the patient use complimentary health approaches? No Assessment & Plan Assessment & Plan (1) Anxiety: Code(s): F41.9 - Anxiety disorder, unspecified (2) Depression: Code(s): F32.A - Depression, unspecified Plan PT not cleared, she will need to provide a letter from provider to support clearance. Phq-9 and BEs will be administered at next visit. Next laurel: 04/24/24 at 12:45pm, via Telehealth Telehealth Telehealth Telehealth Platform: [employer] Location of provider rendering services: other Location of patient: address on file Patient Identification confirmed using: Name, : Yes Telehealth method: video Patient verbally consented to treatment: Yes Patient verbally consented to billing insurance company: Yes Patient informed of any privacy concerns related to visit: No Minutes spent on Phone/Video with Pt.: 60 Coding Level of Care Code Established Pt Tele Psytx >53 mins (35390) Patient Type Established Diagnoses Anxiety F41.9 Depression F32.A Time Spent (min) 60 Comment Start time: 10:05am - End time: 11:05am
== END ==
LOC: HO.HBST 10:12
PROVIDERS: Visit Provider Counselor Mental Health
DX: F41.9 Anxiety disorder, unspecified (principal); F32.A Depression, unspecified
CPT/HCPCS: 90837

== ENCOUNTER → 2024-04-24 12:53 | Outpatient (BNVA) | payer OTHER, SELFPAY | PROVIDERS: Visit Provider Counselor Mental Health ==

== ENCOUNTER → 2024-04-24 12:53 | Outpatient (AMB) | payer OTHER, SELFPAY ==
--- NOTE | 2024-04-24 12:45 | A.OFFWM_ITS ---
Intake Intake Visit Reasons: VIDEO F/U Allergies ASPIRN Allergy (Severe, Uncoded 03/11/24 10:30) Anaphylaxis CT CONTRAST Allergy (Mild, Uncoded 03/11/24 10:30) UNKOWN [facility] Medical History (Updated 04/24/24 @ 14:11 by Padma Tucker [facility]) GERD (gastroesophageal reflux disease) Migraines Anxiety Depression Hypertension Non-insulin dependent type 2 diabetes mellitus Surgical History Hx of colonoscopy Hx of bladder endoscopy Hx of tubal ligation Hx of oral surgery Hx of cholecystectomy Hx of emergency section Hx of appendectomy Family History Mother Stomach problems Father No problems noted. Daughter No problems noted. Social History Alcohol intake: never Patient Tobacco Use Status: Never used Tobacco Behavioral Health Assessment Weight Management Therapy Therapy Notes Details PT presents for a follow up visit via Telehealth. This is her 3rd visit with the objective of completing assessment for bariatric surgery. This a patient with a history of depression and anxiety, she reported her therapist provided her diagnosis last week and she is diagnosed with depression and PTSD. PT has regular visits with her therapist on a bi-weekly basis and prescriber every 2-3 months. The patient reports she feels depressed most of the days and has struggled with emotional and disordered eating for several years leaving to weight gain. She started the SWL program on 03/2024 and was provided with guidelines to follow a meal plan, however the patient reports major struggles in terms of her motivation and committing to this leading to her not following meal plan as indicated. PT reports she has no control over her eating behaviors whic leas to drink the shakes and eat the bar too fast, she is also still engaging in bin- eating at night and feels hungry all the time. On the other hand, the patient reported todayt she has been decreasing portions for her meals of the day and has been increasing the vegetables intakes. She continues not exercising. PT is aware she has a hard time making the necessary behavioral changes to comply with program expectations, partly influenced by high levels of stress and old habits, she has agreed to continue meeting with this provider to start working in behavioral modification. PT is also aware she is not ready for a surgery at this time and she was informed she has not been cleared yet from BH standpoint, but agreed to recommendations and we are planning to meet every 2-3 weeks with the goal of pursue weight-loss surgery when behaviorally and emotionally ready. Presenting Concerns Referral Source WMP-Provider. PT had initial visit with Dr. Dorsey on 03/11/24 PT was in this program on 01/2022. Reason for referral Completion of behavioral health assessment as part of process for weight-loss surgery. Precipitating Event Obesity and medical issues. Living Situation Current Living Situation Rent At risk of losing current housing? No Satisfied with current living situation? Yes Comments PT lives alone. Food/Weight/Diet Expectations of change Initial Goal to lose 10% of your weight before surgery, which is about 27lbs. Ultimate weight goal: 250lbs before surgery. Patient wants to be healthier, and she understand that by losing weight her health will be better. She also wants to feel better with herself with her body. PT as not started meal plan yet. Current meal plan: 2 shakes, 2 bars and 1 meal. Exercise plan: She has a bike and has been advised to use it daily and burn 300 calories. She hasn't started. History/Relationship with food PT reports she tends to swallow food instead of properly chewing foods. She eat fast a mostly carbs. Meals are -style a with multiple carbs in one meal. And she gets very hungry at night often binging and snaking on sweets, cereal with milk or crackers. She doesn't have a meal schedule, and mostly her meals will depend on her mood or how she feels physically. Example of meals before starting the program: Breakfast: @8 or 9am. frozen waffles with coffee (cream and sugar), toast with peanut butter and jelly, crackers with eggs, deli sandwich. Lunch: Skip. Will mostly eat soda crackers with coffee. If cooking dinner early then she will eat at 2pm her meal of the day. Dinner: @4pm. style cooked meals (rice, beans, pork). If hungry at 7pm, will have either a second portion from meal she cooked or will prepare a sandwich or cereal with milk. Frozen pizza. Snacks: multiple at days. Doritos, lollipops, soda. Drinks/Liquids: coffee multiple cups at day, soda, crystal light, 2-3 bootless of water at day, sparkling water with flavor. History/Relationship with weight PT reports she has always been overweight. In the last 10 years, the patient's Lowest weight was around 220Lbs and highest 280Lbs. History/Relationship with dieting WMP in 2021. She has done some diets and OTC pills. She usually starts every effort very motivated but she doesn't like to do things alone, and then feels unmotivated and gets back into old habits which leads to gain the weight she loss. Binge Eating Do you frequently eat large amounts of food in short periods of time, not feeling physically hungry? Yes Do you feel out of control when you eat a large amount of food in a short period of time? Yes Do you eat large amounts of food rapidly and typically alone? Yes Night Eating Do you wake up at least once during the night to eat? Yes If you wake up in the night, do you find that it is necessary to eat something in order to fall back asleep? No Do you have little or no appetite in the morning and feel very hungry in the evening, often overeating between dinner and when you go to bed? No Social History Family history and relationship PT is several years ago. She dates someone 4 years ago who lives in [place]. She has 1 adult daughter and 3 grandkids (they are 15, 13 and 3). She has 2 siblings, mother alive, dad is . PT states she is close with her mother and daughter, and but good relationships with her family in general. Parental/Familial pond tender obligations Helps taking care of grandchildren. Developmental history and status She had a speech delay in childhood. 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 Currently WNL. Social support Brother, daughter, mother. Community support None. Hinduism/Spirituality [employer]. Goes to [employer] couple times at year. Cultural/Ethnic information Born and raised in [place]. [place] the [place]. Mohawk speaker. Legal Involvement and History Current or historical involvement with the legal system? None reported Education Highest grade completed GED. Preferred learning style Learn by doing and Visual Currently enrolled in educational program? No Interested in further educational program? No Employment Employment Status Never Worked (Tried early in life but had issues due to anxiety being abound people and other physical limitations. ) and Unemployed Wants help to find employment? No Meaningful activities Family activities, care of grandkids, watch Tv. Financial Situation Describe current financial situation Often struggles with finance and Financial struggles are a major source of stress Financial assistance? Food [place], SSI and Disability Service Service? No Mental Health and Addiction Treatment Current/Past substance abuse? No Comments Alcohol: rarely, couple times at year 1 beer. Cigarettes/Tobacco: None. Was a smoker years ago. Cannabis/Edibles: None. Current/Past addictive behavior concerns? No Psychiatric history PT currently sees a therapist (Dilcia James) on a bi-weekly basis via telehealth and has a prescriber with whom she meets every 2-3 months. PT states she suffers from depression and anxiety but she's not aware of formal diagnosis. She has a history of self-harming (cutting her arms) when upset and dealing with intense anger. She has been stable in regards cutting couple years ago, and has been replacing this need by getting tattoos as when she goes trough pain she was able to regulate her emotions. States she has never been in crisis and/or hospitalized for mental health. Denies any SI/SA and other-harm. Symptom presentation: -When she's depressed she cries and isol ates, she feels she losses the meaning of her life. - She has high stress due to finances bu t at the same time she struggles with buying in excess. - Reports issues with body image and Medical and Physical Health Summary Additional Medical History not covered in history None Sexual History concerns None Physical exam in the last year? Yes Pain Screening Current pain? Yes Pain in the last few months? Yes Medications Is the patient compliant with medications? Yes Does the patient have Aragon Guardian in place? Not applicable Does the patient use complimentary health approaches? No Questionnaires PHQ-9 Over the last 2 weeks, how often have you been bothered by any of the following problems? 1. Little interest or pleasure in doing things: nearly every day 2. Feeling down, depressed, or hopeless: nearly every day 3. Trouble falling or staying asleep, or sleeping too much: several days (Pt takes meds daily otherwise she is unable to sleep. Also uses CPAP machine whihc is unconfortable. ) 4. Feeling tired or having little energy: nearly every day 5. Poor appetite or overeating: more than half the days (overeating) 6. Feeling bad about yourself - or that you are a failure or have let yourself or your family down: nearly every day 7. Trouble concentrating on things, such as reading the newspaper or watching television: more than half the days 8. Moving or speaking so slowly that other people could have noticed. Or the opposite - being so fidgety or restless that you have been moving around a lot more than usual: several days (anxious) 9. Thoughts that you would be better off or of hurting yourself in some way: not at all (Denies any SI but reports some thoughts about why she had to stay alive and didn;t when she had the stroke. ) Total score: 18 Depression Screening Interpretation: Positive Depression Screening Done: Yes 88411 - PHQ-9 Billing: Yes Source: Developed by Drs. Cem Mcgill, Yenny Reed, Stewart Knight and colleagues, with an educational hardik from [employer]. Binge Eating Scale Group 1 A. I don't feel self-conscious about my wt. or body size when I'm with others. B. I feel concerned about how I look to others, but it normally does not make me fell disappointed with myself C. I do get self-conscious about my appearance and wt. which makes me feel disappointed in myself. D. I feel very self-conscious about my wt. and frequently I feel intense shame and disgust for myself. I try to avoid social contacts because of my self- consciousness. Response Group 1: D Group 2 A. I don't have any difficulty eating slowly in the proper manner. B. Although I seem to gobble down foods, I don't end up feeling stuffed because of eating to much. C. At times, I tend to eat quickly and then, I feel uncomfortably full afterwards. D. I have the habit of bolting down my food, without really chewing it. When this happens I usually feel uncomfortably stuffed because I've eaten to much. Response Group 2: B Group 3 A. I feel capable to control my eating urges when I want to. B. I feel like I have failed to control my eating more than the average person. C. I feel utterly helpless when it comes to feeling in control of my eating urges. D. Because I feel so helpless about controlling my eating I have become very desperate about trying to get control. Response Group 3: D Group 4 A. I don't have the habit of eating when I'm bored. B. I sometimes eat when I'm bored, but often I'm able to get busy and get my mind off food. C. I have a regular habit of eating when I'm bored, but occasionally, I can use some other activity to get my mind off eating. D. I have a strong habit of eating when I'm bored. Nothing seems to help me breath the habit. Response Group 4: D Group 5 A. I'm usually physically hungry when I eat something. B. Occasionally, I eat something on impulse even though I really am not hungry. C. I have the regular habit of eating foods, that I might not really enjoy, to satisfy a hungry feeling even though physically, I don't need the food. D. Although I'm not physically hungry, I get a hungry feeling in my mouth that only seems to be satisfied when I eat a food, like sandwich, that fills my mouth. Sometimes, when I eat the food to satisfy my mouth hunger, I then spit the food out so I won't gain weight. Response Group 5: C Group 6 A. I don't feel any guilt or self-hate after I overeat. B. After I overeat, occasionally I feel guilt or self-hate. C. Almost all the time I experience strong guilt or self-hate after I overeat. Response Group 6: C Group 7 A. I don't lose total control of my eating when dieting even after periods when I overeat. B. Sometimes when I eat a forbidden food on a diet, I feel like I blew it and eat even more. C. Frequently, I have the habit of saying to myself, I've blown it now, why not go all the way, when I overeat on a diet. When that happens I eat more. D. I have a regular habit of starting a strict diets for myself but I break the diets by going on an eating binge. My life seems to be either a feast or famine. Response Group 7: D Group 8 A. I rarely eat so much food that I feel uncomfortably stuffed afterwards. B. Usually about once a month, I each such a quantity of food, I end up feeling very stuffed. C. I have regular periods during the month when I eat large amounts of food, either at mealtime or at snacks. D. I eat so much food that I regularly feel quite uncomfortable after eating and sometimes a bit nauseous. Response Group 8: D Group 9 A. My level of calorie intake does not go up very high or go down very low on a regular basis. B. Sometimes after I overeat, I will try to reduce my caloric intake to almost nothing to compensate for the excess calories I've eaten. C. I have a regular habit of overeating during the night. It seems that my routine is not to be hungry in the morning but overeat in the evening. D. In my adult years, I have had week-long periods where I practically starve myself. This follows periods when I overeat. It seems I live a life of either feast or famine. Response Group 9: A Group 10 A. I usually am able to stop eating when I want to. I know when enough is enough. B. Every so often, I experience a compulsion to eat which I can't seem to control. C. Frequently, I experience strong urges to eat which I seem unable to control, but at other times I can control my eating urges. D. I feel incapable of controlling urges to eat. I have a fear of not being able to stop eating voluntarily. Response Group 10: D Group 11 A. I don't have any problem stopping eating when I feel full. B. I usually can stop eating when I feel full but occasionally overeat leaving me feeling uncomfortably stuffed. C. I have a problem stopping eating once I start and usually I feel uncomfortably stuffed after I eat a meal. D. Because I have a problem not being able to stop eating when I want, I sometimes have to induce vomiting to relieve my stuffed feeling. Response Group 11: C Group 12 A. I seem to eat just as much when I'm with others, Family social gatherings as when I'm by myself. B. Sometimes, when I'm with other persons, I don't eat as much as I want to eat because I'm self-conscious about my eating. C. Frequently, I eat only a small amount of food when others are present, because I'm very embarrassed about my eating. D. I feel so ashamed about overeating that I pick times to overeat when I know no one will see me. I feel like a closet eater. Response Group 12: B Group 13 A. I eat three meals a day with only an occasional between meal snack. B. I eat 3 meals a day, but I also normally snack between meals. C. When I am snacking heavily, I get in the habit of skipping regular meals. D. There are regular periods when I seem to be continually eating, with no planned meals. Response Group 13: D Group 14 A. I don't think much about trying to control unwanted eating urges. B. At least some of the time, I feel my thoughts are pre-occupied with trying to control my eating urges. C. I feel that frequently I spend much time thinking about how much I ate or about trying not to eat anymore. D. It seems to me that most of my waking hours are pre-occupied by thoughts about eating or not eating. I feel like I'm constantly struggling not to eat. Response Group 14: C Group 15 A. I don't think about food a great deal. B. I have strong craving for food but they last only for brief periods of time. C. I have days when I can't seem to think about anything else but food. D. Most of my days seem to be pre-occupied with thoughts about food. I feel like I live to eat. Response Group 15: D Group 16 A. I usually know whether or not I'm physically hungry. I take the right portion of food to satisfy me. B. Occasionally, I feel uncertain about knowing whether or not I'm physically hungry. A these times it's hard to know how much food I should take to satisfy me. C. Even though I might know how many calories I should eat, I don't have any idea what is a normal amount of food for me. Response Group 16: C Binge Eating Score: 36 Score less than 17 Minimal Risk Score between 18-26 Moderate Risk Score between 27-46 High Risk Assessment & Plan Assessment & Plan (1) Depression: Code(s): F32.A - Depression, unspecified (2) Eating problem: Code(s): Z72.4 - Inappropriate diet and eating habits (3) PTSD (post-traumatic stress disorder): Code(s): F43.10 - Post-traumatic stress disorder, unspecified Plan At this time patient is not considered stable to move forward with bariatric surgery. She has active Sx of depression and she has marked difficulties following meal plan and exercise. This patient needs support with habit building and for depression management. Today we completed PHQ-9 and scores were high indicating active Sx of depression, when discussed additional Sx with client , she disclosed congruent information reflecting she feels depressed on a daily basis. And, BES scores indicated severe risk for binge eating, for BES we focused in her current behavior, not eating behaviors before surgery, reflecting patient needs support with eating behavior as she has been using food as coping mechanism. PT will continue meeting with me every 3-4 weeks to receive support with habit building, emotional eating and binge-eating behaviors. She will need to sign an NEAL for this provider to consult with her current provider to support clearance. We will work in 1 behavior at the time, as of right now we will focus on mindfull eating while supporting with anxiety and depression management. PT provided with homework: Use her timer after cutting her bar to eat each piece as indicated, and do a mindfulness exercise in between. Next laurel: 05/13/2024 at 10am, Telehealth. Telehealth Telehealth [facility] Location of [facility] rendering services: other Location of patient: address on file Patient Identification confirmed using: Name, : Yes Telehealth method: video Patient verbally consented to treatment: Yes Patient verbally consented to billing insurance company: Yes Patient informed of any privacy concerns related to visit: Yes Minutes spent on Phone/Video with Pt.: 60 Coding Level of Care Code Established Pt Tele Psytx >53 mins ([id number]) Patient Type Established Diagnoses Depression F32.A Eating problem Z72.4 PTSD (post-traumatic stress disorder) F43.10 Time Spent (min) 60 Comment Start time: 12:45pm, End time: 1:45pm
== END ==
PROVIDERS: Visit Provider Counselor Mental Health
DX: F32.A Depression, unspecified (principal); Z72.4 Inappropriate diet and eating habits; F43.10 Post-traumatic stress disorder, unspecified
CPT/HCPCS: 90837